=== PATIENT | female | born 1995 ===

== ENCOUNTER → 2019-01-23 | Outpatient (CLI) | payer BC ==
[2019-01-23 15:16] LABS: HCG, SERUM QUALITATIVE POSITIVE (NEGATIVE)
[2019-01-28 11:05] LABS: HCG, SERUM QUANTITATIVE 281 MIU/ML
== END ==
LOC: M WUC 12:26
DX: Z32.01 Encounter for pregnancy test, result positive (principal)

== ENCOUNTER → 2019-02-03 | Outpatient (CLI) | payer BC | LOC: M WUC 11:47 | PROVIDERS: ATTEND Obstetrics & Gynecology | DX: Z32.00 Encounter for pregnancy test, result unknown (principal); Z3A.00 Weeks of gestation of pregnancy not specified ==